=== PATIENT | male | born 1995 | race Caucasian/White ===

== ENCOUNTER 2018-10-27 19:00 | Emergency (ER) | payer BC, MEDICAID ==
[2018-10-27] MEDS ORDERED: Sodium Chloride 0.9% 10 ML Syringe FLUSH PRN (19:26)
--- NOTE | 2018-10-27 19:44 | EDM.PDOC ---
ED HPI GENERAL MEDICAL PROBLEM - General Source of Information: Reports: Other (friend). Denies: Patient History Limitations: Reports: Altered Mental Status <Edison Fernández - Last Filed: 10/27/18 23:03> <Wolfgang Bearden - Last Filed: 10/28/18 10:27> - General Chief Complaint: Behavioral/Psych Stated Complaint: MEDICATION PROBLEMS Time Seen by Provider: 10/27/18 19:29 - History of Present Illness INITIAL COMMENTS - FREE TEXT/NARRATIVE: Patient is a 22 year old male who presents to the E.D. with altered LOC. Friend who is present states he walked to her residence and stated he needed a ride to the E.D. Patient had admitted to her he had been using methamphetamines today. Patient has a known history of schizophrenia. Unclear what medications he is currently on. (Edison Fernández) - Related Data Allergies Allergy/AdvReac Type Severity Reaction Status Date / Time Unable to Assess Allergy Unverified 10/27/18 19:09 Home Meds: Home Meds . [Unable to Verify Home Med List] 10/27/18 [History] Past Medical History HEENT History: Reports: Other (See Below) Other HEENT History: unknown, pt not able to verify. Cardiovascular History: Reports: Other (See Below) Other Cardiovascular History: unknown, pt not able to verify. Respiratory History: Reports: Other (See Below) Other Respiratory History: unknown, pt not able to verify. Gastrointestinal History: Reports: Other (See Below) Other Gastrointestinal History: unknown, pt not able to verify. Genitourinary History: Reports: Other (See Below) Other Genitourinary History: unknown, pt not able to verify. Musculoskeletal History: Reports: Other (See Below) Other Musculoskeletal History: unknown, pt not able to verify. Neurological History: Reports: Other (See Below) Other Neuro History: unknown, pt not able to verify. Psychiatric History: Reports: Schizophrenia, Other (See Below) Other Psychiatric History: only verified with friend that is currently with pt. Endocrine/Metabolic History: Reports: Other (See Below) Other Endocrine/Metabolic History: unknown, pt unable to verify. Hematologic History: Reports: Other (See Below) Other Hematologic History: unknown, unable to verify. Oncologic (Cancer) History: Reports: Other (See Below) Other Oncologic History: unknown, unable to verify. - Infectious Disease History Infectious Disease History: Reports: Other (See Below) Other Infectious Disease History: unknown, pt not able to verify. <Edison Fernández - Last Filed: 10/27/18 23:03> Social & Family History - Tobacco Use Smoking Status *Q: Unknown Ever Smoked Second Hand Smoke Exposure: No - Caffeine Use Caffeine Use: Reports: Other Other Caffeine Use: unable to verify. - Recreational Drug Use Other Recreational Drug Type: unable to verify. <Edison Fernández - Last Filed: 10/27/18 23:03> ED ROS GENERAL - Review of Systems Review Of Systems: Unable To Obtain <Edison Fernández - Last Filed: 10/27/18 23:03> - Physical Exam Exam: See Below Exam Limited By: Altered Mental Status General Appearance: Alert, WD/WN, No Apparent Distress Eye Exam: Bilateral Eye: EOMI, Nystagmus (none noted), PERRL Ears: Hearing Grossly Normal Nose: Normal Inspection Throat/Mouth: Normal Inspection, Normal Oropharynx, Normal Voice, No Airway Compromise Head Exam: Atraumatic, Normocephalic Neck: Normal Inspection, Supple, Non-Tender, Full Range of Motion Respiratory/Chest: No Respiratory Distress, Lungs Clear, Normal Breath Sounds, No Accessory Muscle Use, Chest Non-Tender Cardiovascular: Normal Peripheral Pulses, Regular Rate, Rhythm, No Murmur GI/Abdominal: Normal Bowel Sounds, Soft, Non-Tender, No Organomegaly, No Distention Neuro Exam (Abbreviated): Alert, CN II-XII Intact, Normal Gait, No Motor/ Sensory Deficits, Other (No facial droop, slurred speech, pronator drift, and or weakness discrepancies to the upper/lower extremities. gait was normal. ). No: Oriented, Normal Cognition Back Exam: Normal Inspection Extremities: Normal Inspection, Normal Range of Motion, Non-Tender Skin Exam: Warm, Dry, Intact, Normal Color, No Rash <Edison Fernández - Last Filed: 10/27/18 23:03> Course <Edison Fernández - Last Filed: 10/27/18 23:03> <Wolfgang Bearden - Last Filed: 10/28/18 10:27> - Vital Signs Last Recorded V/S: Last Vital Signs Temp 37.2 C 03/04/19 19:05 Pulse 88 10/27/18 19:05 Resp 18 10/27/18 19:05 BP 132/75 10/27/18 19:05 Pulse Ox 97 10/27/18 19:05 - Orders/Labs/Meds Orders: Active Orders 24 hr Category Date Time Status Glucose [Blood Glucose Check, Bedside] [RC] ONETIME Care 10/27/18 19:27 Active Peripheral IV Care [RC] . DIRECTED Care 10/27/18 19:27 Active CANNABINOID (THC) CONFIRM, UR Stat Lab 10/27/18 19:40 Received Sodium Chloride 0.9% [Saline Flush] Med 10/27/18 19:26 Active 10 ml FLUSH ASDIRECTED PRN Peripheral IV Insertion Adult [OM.PC] Routine Oth 10/27/18 19:26 Ordered Medication Orders Sodium Chloride (Saline Flush) 10 ml FLUSH ASDIRECTED PRN PRN Reason: Keep Vein Open Labs: Laboratory Tests 10/27/18 10/27/18 10/27/18 Range/Units 19:39 19:40 19:40 WBC (4.23-9.07) K/mm3 RBC (4.63-6.08) M/mm3 Hgb (13.7-17.5) gm/L Hct (40.1-51.0) % MCV (79.0-92.2) fl MCH (25.7-32.2) pg MCHC (32.2-35.5) g/dl RDW Std Deviation (35.1-43.9) fL Plt Count (163-337) K/mm3 MPV (9.4-12.3) fl Neutrophils % (Manual) (40-60) % Band Neutrophils % (0-10) % Lymphocytes % (Manual) (20-40) % Atypical Lymphs % % Monocytes % (Manual) (2-10) % Eosinophils % (Manual) (0.8-7.0) % Basophils % (Manual) (0.2-1.2) Platelet Estimate Plt Morphology Comment RBC Morph Comment Sodium (136-145) mEq/L Potassium (3.5-5.1) mEq/L Chloride (98-107) mEq/L Carbon Dioxide (21-32) mEq/L Anion Gap (5-15) BUN (7-18) mg/dL Creatinine (0.7-1.3) mg/dL Est Cr Clr Drug Dosing mL/min Estimated GFR (MDRD) (>60) mL/min BUN/Creatinine Ratio (14-18) Glucose (74-106) mg/dL POC Glucose 90 (70-105) mg/dL Calcium (8.5-10.1) mg/dL Total Bilirubin (0.2-1.0) mg/dL AST (15-37) U/L ALT (16-63) U/L Alkaline Phosphatase (46-116) U/L Total Protein (6.4-8.2) g/dl Albumin (3.4-5.0) g/dl Globulin gm/dL Albumin/Globulin Ratio (1-2) TSH 3rd Generation (0.358-3.74) uIU/mL Urine Color Dark yellow (Yellow) Urine Appearance Slt cloudy H (Clear) Urine pH 8.5 H (5.0-8.0) Ur Specific [place] 1.015 (1.005-1.030) Urine Protein 2+ H (Negative) Urine Glucose (UA) Negative (Negative) Urine Ketones Trace H (Negative) Urine Occult Blood Negative (Negative) Urine Nitrite Negative (Negative) Urine Bilirubin 1+ H (Negative) Urine Urobilinogen 1.0 (0.2-1.0) Ur Leukocyte Esterase Negative (Negative) Urine RBC 0-5 (0-5) /hpf Urine WBC 0-5 (0-5) /hpf Ur Epithelial Cells 0-5 (0-5) /hpf Urine Bacteria Moderate H (FEW) /hpf Urine Mucus Many H (FEW) /hpf Salicylates (2.8-20) mg/dL Urine Opiates Screen Negative (FGCUFL=187) Ur Buprenorphine Scrn Negative (CUTOFF=10) Ur Oxycodone Screen Negative (QGU6YR=936) Urine Methadone Screen Negative (SEZ7OQ=043) Ur Propoxyphene Screen Negative (ISCLDP=926) Acetaminophen (10-30) ug/mL Ur Barbiturates Screen Negative (DGWFGE=426) Ur Tricyclics Screen Negative (ODLVPS=416) Ur Phencyclidine Scrn Negative (CUTOFF=25) Ur Amphetamine Screen Negative (AJFRZA=374) U Methamphetamines Scrn Negative (SMZPZL=515) U Benzodiazepines Scrn Negative (DMGDEG=093) U Cocaine Metab Screen Negative (TJXVLT=906) U Marijuana (THC) Screen Presumptive positive H (CUTOFF=50) Ethyl Alcohol (0.00) gm% 10/27/18 10/27/18 10/27/18 Range/Units 20:00 20:00 20:00 WBC 6.74 (4.23-9.07) K/mm3 RBC 5.75 (4.63-6.08) M/mm3 Hgb 16.1 (13.7-17.5) gm/L Hct 47.7 (40.1-51.0) % MCV 83.0 (79.0-92.2) fl MCH 28.0 (25.7-32.2) pg MCHC 33.8 (32.2-35.5) g/dl RDW Std Deviation 42.4 (35.1-43.9) fL Plt Count 243 (163-337) K/mm3 MPV 10.0 (9.4-12.3) fl Neutrophils % (Manual) 76 H (40-60) % Band Neutrophils % 0 (0-10) % Lymphocytes % (Manual) 5 L (20-40) % Atypical Lymphs % 0 % Monocytes % (Manual) 18 H (2-10) % Eosinophils % (Manual) 0 L (0.8-7.0) % Basophils % (Manual) 1 (0.2-1.2) Platelet Estimate Adequate Plt Morphology Comment Normal RBC Morph Comment Normal Sodium 142 (136-145) mEq/L Potassium 3.9 (3.5-5.1) mEq/L Chloride 104 (98-107) mEq/L Carbon Dioxide 23 (21-32) mEq/L Anion Gap 18.9 H (5-15) BUN 12 (7-18) mg/dL Creatinine 1.3 (0.7-1.3) mg/dL Est Cr Clr Drug Dosing 101.87 mL/min Estimated GFR (MDRD) > 60 (>60) mL/min BUN/Creatinine Ratio 9.2 L (14-18) Glucose 99 (74-106) mg/dL POC Glucose (70-105) mg/dL Calcium 10.0 (8.5-10.1) mg/dL Total Bilirubin 0.8 (0.2-1.0) mg/dL AST 35 (15-37) U/L ALT 84 H (16-63) U/L Alkaline Phosphatase 65 (46-116) U/L Total Protein 7.8 (6.4-8.2) g/dl Albumin 4.4 (3.4-5.0) g/dl Globulin 3.4 gm/dL Albumin/Globulin Ratio 1.3 (1-2) TSH 3rd Generation 2.687 (0.358-3.74) uIU/mL Urine Color (Yellow) Urine Appearance (Clear) Urine pH (5.0-8.0) Ur Specific [place] (1.005-1.030) Urine Protein (Negative) Urine Glucose (UA) (Negative) Urine Ketones (Negative) Urine Occult Blood (Negative) Urine Nitrite (Negative) Urine Bilirubin (Negative) Urine Urobilinogen (0.2-1.0) Ur Leukocyte Esterase (Negative) Urine RBC (0-5) /hpf Urine WBC (0-5) /hpf Ur Epithelial Cells (0-5) /hpf Urine Bacteria (FEW) /hpf Urine Mucus (FEW) /hpf Salicylates 0.6 L (2.8-20) mg/dL Urine Opiates Screen (OLIBDG=623) Ur Buprenorphine Scrn (CUTOFF=10) Ur Oxycodone Screen (JRS5HE=583) Urine Methadone Screen (MHW5UL=017) Ur Propoxyphene Screen (IBWBLC=206) Acetaminophen 0 L (10-30) ug/mL Ur Barbiturates Screen (IVTKEN=465) Ur Tricyclics Screen (VVRCJZ=596) Ur Phencyclidine Scrn (CUTOFF=25) Ur Amphetamine Screen (ZNYQMT=275) U Methamphetamines Scrn (IHOWPT=807) U Benzodiazepines Scrn (GSEYWN=580) U Cocaine Metab Screen (BPIHXS=338) U Marijuana (THC) Screen (CUTOFF=50) Ethyl Alcohol 0.00 (0.00) gm% Meds: Medications Generic Name Dose Route Start Last Admin Trade Name Freq PRN Reason Stop Dose Admin Sodium Chloride 10 ml 10/27/18 19:26 Saline Flush FLUSH ASDIRECTED PRN Keep Vein Open Discontinued Medications Generic Name Dose Route Start Last Admin Trade Name Freq PRN Reason Stop Dose Admin Haloperidol Lactate 10 mg 10/27/18 22:59 10/27/18 23:21 Haldol IM 10/27/18 23:00 10 mg ONETIME ONE Administration - Re-Assessments/Exams Free Text/Narrative Re-Assessment/Exam: Vital signs blood pressure 112/79, heart rate 95, S2 O2 97% on room air. On examination patient moves all extremities has no findings concerning for trauma. He is able to follow commands with coaching. Patient is alert but not oriented to person place and time. Friend who is present states patient has a history of methamphetamine use in the past. The patient had walked to her residence and stated he needed a ride. He admitted to using meth to her. In addition she states patient has a history of schizophrenia but does not know what medications he is currently on. Of note patient did vomit while in the waiting room. He also urinated in the waiting room as well. Labs and studies to be obtained include: Rapid bedside glucose, CBC, chem 14, urine drug screen, TSH, UA, serum EtOH, acetaminophen level, and salicylate level. CT o the head without contrast will be obtained. CT of the head impression: Minimal sinus findings which are felt to be incidental. Nothing acute is appreciated on noncontrast head CT study. Labs reviewed: CBC, chem 14 resection normal. ALT mildly elevated 84. TSH normal. UA indicated pH the 0.5, protein 2+, ketones trace, urine bacteria moderate your mucous many. UA is contaminated. Urine drug screen came back positive for marijuana. Serum EtOH 0. Salicylates 0.6. Acetaminophen 0. Patient's mother has arrived. Patient does recognize his mother. Remains confused to where he is located, day, month, and year. I spoke to the patient's mother. She states the patient is on clozaril and depakote for sure. He is on other medications of unknown names. He has a history of requiring hospitalization 2 separate occasions for not taking his medications appropriately. Mother became irritated during our conversation when I advised I wll speak with a psych provider for further direction. I have asked for Dr. Rai to be paged. 10/27/18 21:[address] [facility] call[address] Dr. Vergara with Psych has been paged. 10/27/18 22:10 [address] have spoken with Dr. Vergara. He suggested starting the patient on 10mg IM. He has agreed to direct admit patient tomorrow morning. Due to roads transportation will be a issue. 24hr hold paperwork has been completed. Per [facility] patient has no drug allergies. Patient's mother left the ER for a short period of time. Per nursing staff patient's mother was disruptive and arguing with him. I had asked for the patient's mother not to be allowed back into the emergency department since she was being disruptive. Upon returning back to the ED patient's mother requested being allowed back to the patient's emergency room multiple times. She became disruptive in the admitting area and long enforcement was contacted. During this time I was able to ask the patient's mother the patient has any drug allergies to which she stated no. Patient's mother believes we are harming the patient with seeking admission to a psych facility for further examination. I advised the patient will not be going home with her this evening since he is not alert and oriented 3. He is not safe to go home on his own accord. Per Dr. Krishnan recommendations. I have ordered haldol 10mg IM. Dr. Calle will assume care since it is my end of shift. They will attempt to arrange transport for tomorrow. (Edison Fernández) Departure - Departure Time of Disposition: 22:58 Condition: Good <Edison Fernández - Last Filed: 10/27/18 23:03> - Departure Time of Disposition: 10:14 <Wolfgang Bearden - Last Filed: 10/28/18 10:27> - Departure Disposition: DC/Tfer to Psych Hosp/Unit 65 Clinical Impression: Schizophrenia Qualifiers: Schizophrenia type: unspecified Qualified Code(s): F20.9 - Schizophrenia, unspecified Altered mental status, unspecified Qualifiers: Altered mental status type: disorientation Qualified Code(s): R41.0 - Disorientation, unspecified - Discharge Information Referrals: PCP,None [Primary Care Provider] - Forms: ED Department Discharge Additional Instructions: [facility]'s department pick the patient up around 1014 this morning will be transporting him to [place] for management of psychiatric illness
--- NOTE | 2018-10-27 20:04 | CT ---
Head CT Technique: Multiple axial sections through the brain were obtained. Intravenous contrast was not utilized. Comparison: No prior intracranial imaging. Findings: Ventricles along with basal cisterns and sulci over the convexities appear within normal limits for the patient's age. No abnormal parenchymal densities are seen. No evidence of intracranial hemorrhage. No midline shift or mass effect is seen. Bone window settings were reviewed which shows minimal mucosal thickening within the left anterior ethmoid sinuses extending slightly into the left frontal sinus. No acute calvarial abnormality is seen. Impression: 1. Minimal sinus findings which are felt to be incidental. 2. Nothing acute is appreciated on noncontrast head CT study. Diagnostic code #2
[2018-10-27 20:54] LABS: ACETAMINOPHEN 0 ug/mL (10-30)
[2018-10-27] MEDS ORDERED: Haloperidol Lactate 5 MG/ML SDV IM ONE (22:59)
== END 2018-10-28 10:12 ==
LOC: JD.ED 19:00
DX: F20.9 Schizophrenia, unspecified (principal)
CPT/HCPCS: 36415; 70450; 80053; 80306; 81001; 82962; 84443; 85007; 85027; 96372; 99285; G0480; J1630

== ENCOUNTER 2021-08-09 16:24 | Emergency (ER) | payer BC, MEDICAID ==
[2021-08-09 18:34] LABS: ACETAMINOPHEN 0 ug/mL (10-30)
--- NOTE | 2021-08-09 18:41 | EDM.PDOC ---
ED HPI GENERAL MEDICAL PROBLEM - General Chief Complaint: General Stated Complaint: BLOOD DRAW Time Seen by Provider: 08/09/21 16:43 Source of Information: Reports: Patient History Limitations: Reports: No Limitations - History of Present Illness INITIAL COMMENTS - FREE TEXT/NARRATIVE: The patient presents with someone from [facility]. He has a history of schizophrenia and is in town to visit his mom and run some errands. He is not acting right and needs to go to the [facility] tonight and then he will get back home to [place] tomorrow. He is wanting to get his blood drawn and medically screened for the [facility]. He denies fever, chills, cough, chest pain, shortness of breath, abdominal pain, nausea or vomiting. Onset: Gradual Duration: Day(s): Improves with: Reports: None Worsens with: Reports: None Associated Symptoms: Reports: No Other Symptoms - Related Data Allergies Allergy/AdvReac Type Severity Reaction Status Date / Time Unable to Assess Allergy Unverified 10/27/18 19:09 Home Meds: Home Meds Divalproex Sodium 750 mg PO BEDTIME 08/09/21 [History] cloZAPine [Clozapine] 150 mg PO DAILY 08/09/21 [History] cloZAPine [Clozapine] 700 mg PO BEDTIME 08/09/21 [History] Past Medical History HEENT History: Reports: Other (See Below) Other HEENT History: unknown, pt not able to verify. Cardiovascular History: Reports: Other (See Below) Other Cardiovascular History: unknown, pt not able to verify. Respiratory History: Reports: Other (See Below) Other Respiratory History: unknown, pt not able to verify. Gastrointestinal History: Reports: Other (See Below) Other Gastrointestinal History: unknown, pt not able to verify. Genitourinary History: Reports: Other (See Below) Other Genitourinary History: unknown, pt not able to verify. Musculoskeletal History: Reports: Other (See Below) Other Musculoskeletal History: unknown, pt not able to verify. Neurological History: Reports: Seizure, Other (See Below) Other Neuro History: unknown, pt not able to verify. Psychiatric History: Reports: Schizophrenia, Other (See Below) Other Psychiatric History: report from [facility] nurse Endocrine/Metabolic History: Reports: Other (See Below) Other Endocrine/Metabolic History: unknown, pt unable to verify. Hematologic History: Reports: Other (See Below) Other Hematologic History: unknown, unable to verify. Oncologic (Cancer) History: Reports: Other (See Below) Other Oncologic History: unknown, unable to verify. - Infectious Disease History Infectious Disease History: Reports: Other (See Below) Other Infectious Disease History: unknown, pt not able to verify. Social & Family History - Tobacco Use Tobacco Use Status *Q: Current Every Day Tobacco User Years of Tobacco use: 15 Packs/Tins Daily: 1 - Caffeine Use Caffeine Use: Reports: Coffee, Soda Other Caffeine Use: unable to verify. - Recreational Drug Use Recreational Drug Use: No ED ROS GENERAL - Review of Systems Review Of Systems: See Below Constitutional: Reports: No Symptoms HEENT: Reports: No Symptoms Respiratory: Reports: No Symptoms Cardiovascular: Reports: No Symptoms Endocrine: Reports: No Symptoms GI/Abdominal: Reports: No Symptoms : Reports: No Symptoms Musculoskeletal: Reports: No Symptoms Skin: Reports: No Symptoms ED EXAM, GENERAL - Physical Exam Exam: See Below Exam Limited By: No Limitations General Appearance: Alert, No Apparent Distress Ears: Normal External Exam Nose: Normal Inspection Head: Atraumatic, Normocephalic Neck: Normal Inspection Respiratory/Chest: No Respiratory Distress, Lungs Clear, Normal Breath Sounds Cardiovascular: Regular Rate, Rhythm, No Edema, No Murmur GI/Abdominal: Soft, Non-Tender, No Organomegaly, No Mass Back Exam: Normal Inspection Extremities: Normal Inspection Course - Vital Signs Last Recorded V/S: Last Vital Signs Temp 98.4 F 08/09/21 16:59 Pulse 106 H 08/09/21 16:59 Resp BP 139/107 H 08/09/21 16:59 Pulse Ox 98 08/09/21 16:59 - Orders/Labs/Meds Orders: Active Orders 24 hr Category Date Time Status DRUG SCREEN, URINE [URCHEM] Stat Lab 08/09/21 18:10 Received Labs: Laboratory Tests 08/09/21 08/09/21 08/09/21 Range/Units 17:55 17:55 17:55 WBC 4.54 (4.23-9.07) K/mm3 RBC 5.80 (4.63-6.08) M/mm3 Hgb 16.1 (13.7-17.5) gm/dl Hct 50.3 (40.1-51.0) % MCV 86.7 D (79.0-92.2) fl MCH 27.8 (25.7-32.2) pg MCHC 32.0 L (32.2-35.5) g/dl RDW Std Deviation 43.5 (35.1-43.9) fL Plt Count 229 (163-337) K/mm3 MPV 10.0 (9.4-12.3) fl Neut % (Auto) 44.9 (34.0-67.9) % Lymph % (Auto) 37.7 (21.8-53.1) % [place] % (Auto) 12.1 (5.3-12.2) % Eos % (Auto) 4.2 (0.8-7.0) Baso % (Auto) 0.7 (0.1-1.2) % Neut # (Auto) 2.04 (1.78-5.38) K/mm3 Lymph # (Auto) 1.71 (1.32-3.57) K/mm3 [place] # (Auto) 0.55 (0.30-0.82) K/mm3 Eos # (Auto) 0.19 (0.04-0.54) K/mm3 Baso # (Auto) 0.03 (0.01-0.08) K/mm3 Sodium 141 (136-145) mEq/L Potassium 3.9 (3.5-5.1) mEq/L Chloride 102 (98-107) mEq/L Carbon Dioxide 30 (21-32) mEq/L Anion Gap 12.9 (5-15) BUN 10 (7-18) mg/dL Creatinine 1.1 (0.7-1.3) mg/dL Est Cr Clr Drug Dosing TNP Estimated GFR (MDRD) > 60 (>60) mL/min BUN/Creatinine Ratio 9.1 L (14-18) Glucose 94 (70-99) mg/dL Calcium 8.7 (8.5-10.1) mg/dL Total Bilirubin 0.4 (0.2-1.0) mg/dL AST 76 H (15-37) U/L ALT 167 H (16-63) U/L Alkaline Phosphatase 82 (46-116) U/L Total Protein 7.4 (6.4-8.2) g/dl Albumin 4.2 (3.4-5.0) g/dl Globulin 3.2 gm/dL Albumin/Globulin Ratio 1.3 (1-2) Salicylates 0.9 L (2.8-20) mg/dL Acetaminophen 0 L (10-30) ug/mL Valproic Acid 50.5 (50.0-100.0) ug/mL - Re-Assessments/Exams Free Text/Narrative Re-Assessment/Exam: 08/09/21 18:42 I ordered labs, UDS and COVID. 08/09/21 19:17 His CBC looks good. His AST is elevated at 76. His ALT was elevated at 167. His salicylates and acetaminophen are negative. His valproic acid was therapeutic at 50.5. Departure - Departure Time of Disposition: 19:35 Disposition: Home, Self-Care 01 Condition: Good Clinical Impression: Schizophrenia Qualifiers: Schizophrenia type: unspecified Qualified Code(s): F20.9 - Schizophrenia, unspecified - Discharge Information *PRESCRIPTION DRUG MONITORING PROGRAM REVIEWED*: Not Applicable *COPY OF PRESCRIPTION DRUG MONITORING REPORT IN PATIENT NORBERTO: Not Applicable Referrals: PCP,None [Primary Care Provider] - Forms: ED Department Discharge Additional Instructions: Go directly to the [facility]. Please return if you are worse. Sepsis Event Note (ED) - Focused Exam Vital Signs: Vital Signs Temp Pulse BP Pulse Ox 08/09/21 16:59 98.4 F 106 H 139/107 H 98 - My Orders Last 24 Hours: My Active Orders 08/09/21 18:10 DRUG SCREEN, URINE [URCHEM] Stat - Assessment/Plan Last 24 Hours: My Active Orders 08/09/21 18:10 DRUG SCREEN, URINE [URCHEM] Stat
[2021-08-09 20:57] LABS: CORONAVIRUS COVID-19 NAA POSITIVE (NEGATIVE)
== END 2021-08-09 19:40 | disposition home or self-care (01) ==
LOC: JD.ED 16:24
DX: F20.9 Schizophrenia, unspecified (principal); Z72.0 Tobacco use; Z20.822 Contact with and (suspected) exposure to COVID-19
CPT/HCPCS: 0240U; 36415; 80053; 80143; 80164; 80179; 80306; 85025; 99283; 99284